=== PATIENT | male | born 1960 | race Caucasian/White ===

== ENCOUNTER 2019-08-14 21:16 | Emergency (ER) | payer MEDICAID ==
[~2019-08-14] VITALS: Ht 175.3 cm; Wt 61.0 kg
[2019-08-14] MEDS ORDERED: CEPH-572 PO (22:08)
[2019-08-14] MEDS ORDERED: METF500T20 PO (22:08)
[2019-08-14] MEDS ORDERED: METF500T PO (22:09)
[2019-08-14] MEDS ORDERED: normal saline 1000ML IV soln IVB ONE (22:25)
[2019-08-14 22:37] LABS: BASOPHILS # (AUTO) 0.1 X10'3 (0-0.2); EOSINOPHILS # (AUTO) 0.1 X10'3 (0-0.9); EOSINOPHILS % (AUTO) 0.8 % (0-6); HEMATOCRIT 39.9 % (42.0-52.0); HEMOGLOBIN 13.6 g/dl (14.0-17.9); LYMPHOCYTES # (AUTO) 2.3 X10'3 (1.1-4.8); MEAN CORPUSCULAR HEMOGLOBIN 30.4 PG (27.0-31.0); MEAN CORPUSCULAR VOLUME 89.4 FL (78-98); MEAN PLATELET VOLUME 9.7 FL (7.4-10.4); MONOCYTES # (AUTO) 0.9 X10'3 (0-0.9); MONOCYTES % (AUTO) 7.2 % (2-12); NEUTROPHILS # (AUTO) 9.5 X10'3 (1.8-7.7); PLATELET COUNT 272 X10'3 (140-440); RED BLOOD COUNT 4.47 X10'6 (4.70-6.10); RED CELL DISTRIBUTION WIDTH 13.8 % (11.5-14.5)
[2019-08-14 22:51] LABS: ALANINE AMINOTRANSFERASE 40 U/L (12-78); ALBUMIN 3.2 G/DL (3.4-5.0); ALBUMIN/GLOBULIN RATIO 0.7 (1.1-1.5); ALKALINE PHOSPHATASE 117 IU/L (46-116); ANION GAP 10 (8-16); ASPARTATE AMINO TRANSFERASE 25 U/L (10-37); BILIRUBIN,TOTAL 0.3 MG/DL (0.1-1.0); BLOOD UREA NITROGEN 21 MG/DL (7-18); BUN/CREATININE RATIO 14.8 (5.4-32.0); CALCIUM 9.1 MG/DL (8.5-10.1); CHLORIDE 97 MMOL/L (99-107); CREATININE 1.42 MG/DL (0.60-1.10); POTASSIUM 4.5 MMOL/L (3.5-5.1); SODIUM 133 MMOL/L (135-145); TOTAL CARBON DIOXIDE 25.9 MMOL/L (24-32); TOTAL PROTEIN 7.5 G/DL (6.4-8.2); eGFR 51 ML/MIN
[2019-08-14 22:56] LABS: GLUCOSE 451 MG/DL (70-104)
[2019-08-14] MEDS ORDERED: insulin regular, human 10 units/0.1 ml syringe IV ONE (23:30)
[2019-08-14] MEDS ORDERED: insulin regular, human U-100 3ml vial - multi-dose IV ONE (23:40)
[2019-08-14] MEDS ORDERED: cephalexin 250mg capsule PO ONE (23:45)
--- NOTE | 2019-08-15 00:05 | NUR ---
Pt cleaned up from incontinent med bowel movement.
[2019-08-15 00:36] VITALS: BP 121/86
== END 2019-08-15 00:38 | disposition home or self-care (01) ==
LOC: ER 21:18
DX: E11.65 Type 2 diabetes mellitus with hyperglycemia (principal); L98.8 Other specified disorders of the skin and subcutaneous tissue; F15.90 Other stimulant use, unspecified, uncomplicated; Z88.0 Allergy status to penicillin; Z88.6 Allergy status to analgesic agent; Z88.5 Allergy status to narcotic agent; Z79.899 Other long term (current) drug therapy; Z79.84 Long term (current) use of oral hypoglycemic drugs
CPT/HCPCS: 36415; 80053; 82948; 85025; 96374; 99283; J7030; J1815